=== PATIENT | female | born 1990 | race American Indian/Alaskan Native ===

== ENCOUNTER 2018-06-22 15:39 | Emergency (ER) | payer OTHER ==
[2018-06-22 15:58] VITALS: BP 144/84
--- NOTE | 2018-06-22 17:45 | XRay Report ---
PROCEDURE: XR KNEE 3V RT TECHNIQUE: 3 views HISTORY: fall going up stairs COMPARISONS: None FINDINGS: No fracture or dislocation. The joint spaces are maintained. No suprapatellar joint effusion. IMPRESSION: Unremarkable right knee.. This document is electronically signed by Haresh Dotson MD., June 22 2018 05:43:29 PM ET
--- NOTE | 2018-06-22 19:38 | Emergency Department Report ---
ED Lower Extremity HPI - General Chief Complaint: Extremity Injury, Lower Stated Complaint: R KNEE PAIN Time Seen by Provider: 06/22/18 16:10 Source: patient Mode of arrival: Ambulatory Limitations: No Limitations - History of Present Illness Initial Comments: History of right knee pain for last 2 or 3 years. She is in a fall during that time. We'll JUST states that her leg has gave out. States it has been occasionally feeling weak since the initial injury, which she had checked up at a hospital and they advised her that further evaluation was needed likely an MRI because they thought there was some internal derangement, but she has yet to follow-up MD Complaint: knee injury -: month(s) Injury: Knee: Right Type of Injury: other (knee gave out and fell to the ground, slight twisting while at home, going up stairs) - Related Data Previous Rx's Medication Instructions Recorded Last Taken Type Ketorolac [Toradol] 10 mg PO Q6H PRN #14 tablet 06/22/18 Unknown Rx Allergies Allergy/AdvReac Type Severity Reaction Status Date / Time No Known Allergies Allergy Unverified 06/22/18 15:42 ED Review of Systems ROS: Stated complaint: R KNEE PAIN Other details as noted in HPI Constitutional: denies: chills, fever Eyes: denies: eye pain, eye discharge, vision change ENT: denies: ear pain, throat pain Respiratory: denies: cough, shortness of breath, wheezing Cardiovascular: denies: chest pain, palpitations Endocrine: no symptoms reported Gastrointestinal: denies: abdominal pain, nausea, diarrhea Genitourinary: denies: urgency, dysuria, discharge Musculoskeletal: denies: back pain, joint swelling, arthralgia Skin: denies: rash, lesions Neurological: denies: headache, weakness, paresthesias Psychiatric: denies: anxiety, depression Hematological/Lymphatic: denies: easy bleeding, easy bruising ED Past Medical Hx - Past Medical History Previous Medical History?: No - Surgical History Past Surgical History?: No - Social History Smoking Status: Current Every Day Smoker Substance Use Type: None - Medications Home Medications: Home Medications Medication Instructions Recorded Confirmed Last Taken Type Ketorolac [Toradol] 10 mg PO Q6H PRN #14 tablet 06/22/18 Unknown Rx ED Physical Exam - General Limitations: No Limitations General appearance: alert, in no apparent distress - Head Head exam: Present: atraumatic, normocephalic - Eye Eye exam: Present: normal appearance - ENT ENT exam: Present: mucous membranes moist - Neck Neck exam: Present: normal inspection - Respiratory Respiratory exam: Present: normal lung sounds bilaterally. Absent: respiratory distress - Cardiovascular Cardiovascular Exam: Present: regular rate, normal rhythm. Absent: systolic murmur, diastolic murmur, rubs, gallop - GI/Abdominal GI/Abdominal exam: Present: soft, normal bowel sounds - Extremities Exam Extremities exam: Present: normal inspection, tenderness, other (full range of motion is noted. Pain with varus and valgus were noted. No laxity. Drawer test is is is negative. No pain on Marlene's test. Normal patellar manipulation with no discomfort. No effusion noted. No popliteal mass. Pulses 2+ no cyanosis, no clubbing. No calf pain, no Homans sign, no cords) - Back Exam Back exam: Present: normal inspection - Neurological Exam Neurological exam: Present: alert, oriented X3, CN II-XII intact, normal gait - Psychiatric Psychiatric exam: Present: normal affect, normal mood - Skin Skin exam: Present: warm, dry, intact, normal color. Absent: rash ED Course Vital Signs 06/22/18 15:42 Temperature 98.6 F Pulse Rate 93 H Respiratory 16 Rate Blood Pressure 144/84 O2 Sat by Pulse 98 Oximetry Critical care attestation.: If time is entered above; I have spent that time in minutes in the direct care of this critically ill patient, excluding procedure time. ED Disposition Clinical Impression: Strain of right knee Disposition: DC-01 TO HOME OR SELFCARE Is pt being admited?: No Does the pt Need Aspirin: No Condition: Stable Instructions: Crutch Instructions (ED), Knee Pain (ED) Prescriptions: Ketorolac [Toradol] 10 mg PO Q6H PRN #14 tablet PRN Reason: Pain Referrals: TRUDY MCCORMICK MD [Primary Care Provider] - 3-5 Days
== END 2018-06-22 19:43 | disposition home or self-care (01) ==
LOC: ED 15:39
DX: S86.911A Strain of unspecified muscle(s) and tendon(s) at lower leg level, right leg, initial encounter (principal); F17.200 Nicotine dependence, unspecified, uncomplicated; W19.XXXA Unspecified fall, initial encounter; Y93.89 Activity, other specified; Y92.89 Other specified places as the place of occurrence of the external cause; Y99.8 Other external cause status